=== PATIENT | female | born 1975 ===

== ENCOUNTER 2023-03-20 05:10 | Day surgery (SDC) | payer OTHER ==
[2023-03-15 08:15] LABS: PH,URINE 6.5 (5.0-8.0); URINE APPEARANCE Clear; URINE BILIRRUBIN Negative (NEGATIVE); URINE BLOOD Large; URINE COLOR Orange; URINE GLUCOSE Negative (NEGATIVE); URINE LEUKOCYTE Moderate; URINE NITRATE Negative; URINE PROTEIN Negative (NEGATIVE); URINE UROBILINOGEN 0.2 E.U./dl
[2023-03-15 08:17] LABS: URINE BACTERIA 234.5 uL (0.0-1933); URINE EPITHELIAL CELLS 23.3 uL (0.0-38.8); URINE RBC 3515.9 uL (0.0-20.8); URINE WBC 124.1 uL (0.0-23.2)
[2023-03-15 08:27] LABS: HEMATOCRIT 33.1 % (36.0-45.00); HEMOGLOBIN 10.6 g/dL (12.0-15.00); PLATELET COUNT 340 K/uL (150-450); RED CELL DISTRIBUTION WIDTH 23.7 % (11.5-14.5)
[2023-03-15 08:39] LABS: MEAN CELL VOLUME 68.9 fL (80.00-100.00)
[2023-03-15 08:51] LABS: ALBUMIN 3.8 gm/dL (3.4-5.0); BILIRUBIN TOTAL 0.61 mg/dL (0.3-1.2); CREATININE SERUM 0.78 mg/dL (0.55-1.02); GFR 79.51; GLOBULINA 3.8 G/DL (2.4-3.5); POTASSIUM 4.28 mEq/L (3.5-5.1); TOTAL PROTEIN 7.6 gm/dL (6.4-8.2)
[2023-03-15 09:04] LABS: INR 0.98; PARTIAL THROMBOPLASTIN TIME 29.6 SECONDS (22.0-34.0); PROTHROMBIN TIME 10.3 SECONDS (9.0-11.5)
[~2023-03-20] VITALS: Ht 157.5 cm; Wt 119.3 kg
== END 2023-03-20 16:00 | disposition home or self-care (01) ==
LOC: CIR.AMB 05:10
PROVIDERS: ATTEND Student in an Organized Health Care Education/Training Program
DX: C54.1 Malignant neoplasm of endometrium (principal); N72 Inflammatory disease of cervix uteri; N87.9 Dysplasia of cervix uteri, unspecified; N93.8 Other specified abnormal uterine and vaginal bleeding; Z20.822 Contact with and (suspected) exposure to COVID-19; Z88.6 Allergy status to analgesic agent